=== PATIENT | male | born 1985 | race Caucasian/White ===

== ENCOUNTER 2017-10-01 17:41 | Inpatient (IN) | payer SELFPAY ==
[~2017-10-01 17:41] MED LIST: ERYT1O EACH EYE; OMNI1SUS EACH EYE; PERC5TAB12 PO
[2017-10-01 17:42] VITALS: BP 140/78; PULSE 86; RESP 12; TEMP 98.2; O2SAT 97
[2017-10-01] MEDS ORDERED: NEXI20CA PO (18:18)
[2017-10-01] MEDS ORDERED: METOCLOPRAMIDE HCL 10 MG/2 ML VIAL IV PUSH ONE (18:30)
[2017-10-01] MEDS ORDERED: diphenhydrAMINE HCL 50 MG/ML VIAL IV PUSH ONE (18:30)
[2017-10-01] MEDS ORDERED: KETOROLAC TROMETHAMINE 30 MG/ML (IVP) VIAL IV PUSH ONE (18:30)
--- NOTE | 2017-10-01 18:33 | PD ---
HPI Chief Complaint: GI Complaint Time Seen by Provider: 18:16 Travel History International Travel<30 days: No Contact w/Intl Traveler<30days: No Traveled to known affect area: No History of Present Illness HPI 31-year-old white male presents to emergency Department with complaints of lower abdominal discomfort since Tuesday. He states that he has had a mild intermittent crampy waxing and waning discomfort in his lower abdomen with some radiation into his rectum. He states that he noticed some increased urgency to urinate but no dysuria. Some mild frequency. He denies any discharge. No rashes or lesions. No fever chills. No nausea vomiting. No loss of appetite. He's been eating and drinking but states that he has to force himself. His bowel movements have been firmer but not constipated. Patient's family has a history of colitis. He has not had a colonoscopy. [facility] Past Medical History Medical History: Denies Significant Hx Diminished Hearing: No Immunizations Current: Yes Past Surgical History Surgical History: No Previous Surgery Social History Alcohol Use: No Tobacco Use: Yes Substance Use: No Allergies-Medications (Allergen,Severity, Reaction): Coded Allergies: No Known Allergies (Unverified Allergy, Unknown, 10/01/17) Reported Meds & Prescriptions Reported Meds & Active Scripts Active Reported Nexium (Esomeprazole DR) 20 Mg Capdr 20 Mg PO DAILY Review of Systems Except as stated in HPI: all other systems reviewed are Neg Physical Exam Narrative GENERAL: Well-developed, well-nourished in no apparent distress. Nontoxic appearing. HEAD: Normocephalic, atraumatic. EYES: Pupils equal round and reactive. Extraocular motions intact. No scleral icterus. No injection or drainage. ENT: Nose clear. Throat without erythema, tonsillar hypertrophy or exudate. Uvula midline. Airway patent. NECK: Trachea midline. Supple, nontender, moves head freely. No central bony tenderness or spasm. CARDIOVASCULAR: Regular rate and rhythm without murmurs, gallops, or rubs. RESPIRATORY: Clear to auscultation. Breath sounds equal bilaterally. No wheezes , rales, or rhonchi. GASTROINTESTINAL: Abdomen soft, non-tender, nondistended. No hepato-splenomegaly , or palpable masses. No guarding. Rectal: Patient has a small amount of soft brown stool in the rectum. He does have an enlarged prostate but the texture is normal. There is no rashes or lesions around the rectum. No palpable masses. EXTREMITIES: No clubbing, cyanosis, or edema. No joint tenderness. BACK: Nontender without deformity. No flank tenderness. NEUROLOGICAL: Awake, alert and oriented x 3 .Cranial nerves grossly intact. Motor and sensory grossly within normal limits. Normal speech. Data Data Last Documented VS Vital Signs Date Time Temp Pulse Resp B/P (MAP) Pulse Ox O2 Delivery O2 Flow Rate FiO2 10/01/17 19:21 12 10/01/17 19:20 80 129/61 (83) 97 10/01/17 17:42 98.2 Orders Orders Complete Blood Count With Diff (10/01/17 18:24) Comprehensive Metabolic Panel (10/01/17 18:24) C-Reactive Protein (Crp) (10/01/17 18:24) Ua Includes Microscopic (10/01/17 18:24) Iv Access Insert/Monitor (10/01/17 18:24) Ketorolac Inj (Toradol Inj) (10/01/17 18:30) Diphenhydramine Inj (Benadryl Inj) (10/01/17 18:30) Metoclopramide Inj (Reglan Inj) (10/01/17 18:30) Oral Rehydration (10/01/17 18:24) Ct Abd/Pel W Iv Contrast(Rout) (10/01/17 19:21) Iohexol 350 Inj (Omnipaque 350 Inj) (10/01/17 20:09) Admit Order (Ed Use Only) (10/01/17 ) Vital Signs (Adult) Q4H (10/01/17 20:43) Diet Npo (10/02/17 Breakfast) Activity Oob With Assistance (10/01/17 20:43) Notify Dr: Other (10/01/17 20:43) Labs Laboratory Tests Test 10/01/17 18:30 10/01/17 18:50 White Blood Count 12.6 TH/MM3 Red Blood Count 5.21 MIL/MM3 Hemoglobin 14.9 GM/DL Hematocrit 43.8 % Mean Corpuscular Volume 84.1 FL Mean Corpuscular Hemoglobin 28.6 PG Mean Corpuscular Hemoglobin Concent 34.0 % Red Cell Distribution Width 13.7 % Platelet Count 342 TH/MM3 Mean Platelet Volume 7.7 FL Neutrophils (%) (Auto) 73.5 % Lymphocytes (%) (Auto) 18.5 % Monocytes (%) (Auto) 6.2 % Eosinophils (%) (Auto) 1.2 % Basophils (%) (Auto) 0.6 % Neutrophils # (Auto) 9.2 TH/MM3 Lymphocytes # (Auto) 2.3 TH/MM3 Monocytes # (Auto) 0.8 TH/MM3 Eosinophils # (Auto) 0.2 TH/MM3 Basophils # (Auto) 0.1 TH/MM3 CBC Comment DIFF FINAL Differential Comment Blood Urea Nitrogen 18 MG/DL Creatinine 1.02 MG/DL Random Glucose 87 MG/DL Total Protein 7.4 GM/DL Albumin 3.6 GM/DL Calcium Level 8.9 MG/DL Alkaline Phosphatase 119 U/L Aspartate Amino Transf (AST/SGOT) 14 U/L Alanine Aminotransferase (ALT/SGPT) 38 U/L Total Bilirubin 0.3 MG/DL Sodium Level 138 MEQ/L Potassium Level 4.1 MEQ/L Chloride Level 103 MEQ/L Carbon Dioxide Level 28.7 MEQ/L Anion Gap 6 MEQ/L Estimat Glomerular Filtration Rate 85 ML/MIN C-Reactive Protein 2.50 MG/DL Urine Color YELLOW Urine Turbidity CLEAR Urine pH 6.5 Urine Specific [place] 1.014 Urine Protein NEG mg/dL Urine Glucose (UA) NEG mg/dL Urine Ketones TRACE mg/dL Urine Occult Blood NEG Urine Nitrite NEG Urine Bilirubin NEG Urine Urobilinogen LESS THAN 2.0 MG/DL Urine Leukocyte Esterase NEG Urine RBC 1 /hpf Urine Mucus FEW /lpf MDM Medical Decision Making Medical Screen Exam Complete: Yes Emergency Medical Condition: Yes Medical Record Reviewed: Yes Interpretation(s) Laboratory Tests Test 10/01/17 18:30 10/01/17 18:50 White Blood Count 12.6 TH/MM3 Red Blood Count 5.21 MIL/MM3 Hemoglobin 14.9 GM/DL Hematocrit 43.8 % Mean Corpuscular Volume 84.1 FL Mean Corpuscular Hemoglobin 28.6 PG Mean Corpuscular Hemoglobin Concent 34.0 % Red Cell Distribution Width 13.7 % Platelet Count 342 TH/MM3 Mean Platelet Volume 7.7 FL Neutrophils (%) (Auto) 73.5 % Lymphocytes (%) (Auto) 18.5 % Monocytes (%) (Auto) 6.2 % Eosinophils (%) (Auto) 1.2 % Basophils (%) (Auto) 0.6 % Neutrophils # (Auto) 9.2 TH/MM3 Lymphocytes # (Auto) 2.3 TH/MM3 Monocytes # (Auto) 0.8 TH/MM3 Eosinophils # (Auto) 0.2 TH/MM3 Basophils # (Auto) 0.1 TH/MM3 CBC Comment DIFF FINAL Differential Comment Blood Urea Nitrogen 18 MG/DL Creatinine 1.02 MG/DL Random Glucose 87 MG/DL Total Protein 7.4 GM/DL Albumin 3.6 GM/DL Calcium Level 8.9 MG/DL Alkaline Phosphatase 119 U/L Aspartate Amino Transf (AST/SGOT) 14 U/L Alanine Aminotransferase (ALT/SGPT) 38 U/L Total Bilirubin 0.3 MG/DL Sodium Level 138 MEQ/L Potassium Level 4.1 MEQ/L Chloride Level 103 MEQ/L Carbon Dioxide Level 28.7 MEQ/L Anion Gap 6 MEQ/L Estimat Glomerular Filtration Rate 85 ML/MIN C-Reactive Protein 2.50 MG/DL Urine Color YELLOW Urine Turbidity CLEAR Urine pH 6.5 Urine Specific [place] 1.014 Urine Protein NEG mg/dL Urine Glucose (UA) NEG mg/dL Urine Ketones TRACE mg/dL Urine Occult Blood NEG Urine Nitrite NEG Urine Bilirubin NEG Urine Urobilinogen LESS THAN 2.0 MG/DL Urine Leukocyte Esterase NEG Urine RBC 1 /hpf Urine Mucus FEW /lpf Last 24 hours Impressions Abdomen/Pelvis CT 10/01/171920 Signed Impressions: Service Date/Time: Sunday, October 01, 2017 20:03 - CONCLUSION: Abnormal thickening of the rectal wall with haziness of the perisigmoidal fat planes and there are diverticuli possibly acute diverticulitis with gas bubbles outside of the bowel loops suggestive of contained rupture without focal abscess. Possibility of underlying malignancy is not excluded and are lymph nodes within the pelvis as well subcentimeter in size indeterminate. Inocencia Bradshaw MD Differential Diagnosis MDM: High Differential diagnoses: Acute appendicitis, acute pancreatitis, diverticulitis, hepatitis, colitis, ischemic bowel, bowel instruction, nonspecific abdominal pain, gastroparesis, electrolyte abnormality, dehydration, drug-seeking, malingering Narrative Course IV access is obtained. Routine chemistries including CBC, chemistry, UA, CRP. Patient is given oral hydration. BenadryL 50mgIV, Reglan 10 mg IV, and Toradol [address] scan reveals acute sigmoid diverticulitis with microperforation. Patient will be started on Zosyn. I have spoken with Dr. Malcolm who is agreed to admit the patient. She states that she will follow up and start his antibiotics. We will consult Gen. surgery. I have answered all the patient's questions regarding his diagnosis and admission today. Diagnosis Primary Impression: acute sigmoid diverticulitis with microperforation Condition: Stable Reji Rocha Oct 01, 2017 18:33
[2017-10-01 19:05] LABS: AUTOMATED NEUTROPHIL # 9.2 TH/MM3 (1.8-7.7); BASOPHIL # 0.1 TH/MM3 (0-0.2); BASOPHIL % 0.6 % (0.0-2.0); EOSINOPHIL # 0.2 TH/MM3 (0-0.4); EOSINOPHIL % 1.2 % (0.0-4.0); HEMATOCRIT 43.8 % (39.0-51.0); HEMOGLOBIN 14.9 GM/DL (13.0-17.0); LYMPH % 18.5 % (9.0-44.0); LYMPHOCYTE # 2.3 TH/MM3 (1.0-4.8); MEAN CELL VOLUME 84.1 FL (80.0-100.0); MEAN CORPUSCULAR HEMOGLOBIN 28.6 PG (27.0-34.0); MEAN PLATELET VOLUME 7.7 FL (7.0-11.0); MONO % 6.2 % (0.0-8.0); MONOCYTE # 0.8 TH/MM3 (0-0.9); NEUT % 73.5 % (16.0-70.0); PLATELET COUNT 342 TH/MM3 (150-450); RED BLOOD COUNT 5.21 MIL/MM3 (4.50-5.90); RED CELL DISTRIBUTION WIDTH 13.7 % (11.6-17.2); WHITE BLOOD COUNT 12.6 TH/MM3 (4.0-11.0)
[2017-10-01 19:17] LABS: BILIRUBIN, URINE NEG (NEG); BLOOD, URINE NEG (NEG); GLUCOSE,URINE NEG (NEG); KETONE, URINE TRACE mg/dL (NEG); MUCUS URINE FEW /lpf (OCC); NITRITE,URINE NEG (NEG); PH, URINE 6.5 (5.0-8.5); URINE COLOR YELLOW (YELLW/STRAW); URINE LEUKOCYTE ESTERASE NEG (NEG)
[2017-10-01 19:20] VITALS: BP 129/61; PULSE 80; RESP 12; O2SAT 97
[2017-10-01 19:20] LABS: ALBUMIN 3.6 GM/DL (3.4-5.0); AST (GOT) 14 U/L (15-37); BICARBONATE 28.7 MEQ/L (21.0-32.0); BLOOD UREA NITROGEN 18 MG/DL (7-18); CALCIUM 8.9 MG/DL (8.5-10.1); CHLORIDE 103 MEQ/L (98-107); CREATININE 1.02 MG/DL (0.60-1.30); GLOMERULAR FILTRATION RATE 85 ML/MIN (>89); GLUCOSE,RANDOM 87 MG/DL (74-106); SODIUM (NA) 138 MEQ/L (136-145)
[2017-10-01 19:21] LABS: ALT (GPT) 38 U/L (12-78)
[2017-10-01 19:24] LABS: ALKALINE PHOSPHATASE 119 U/L (45-117); TOTAL BILIRUBIN ADULT 0.3 MG/DL (0.2-1.0); TOTAL PROTEIN 7.4 GM/DL (6.4-8.2)
[2017-10-01 20:00] VITALS: BP 126/70; PULSE 83; RESP 15; TEMP 96; O2SAT 94
[2017-10-01] MEDS ORDERED: IOHEXOL 350 MG/ML 10 ML VIAL (for RAD DIAG) IVCONTRAST ONE (20:09)
--- NOTE | 2017-10-01 20:29 | RADRPT ---
EXAM DATE/TIME: 10/01/2017 20:03 [facility] COMPARISON: No previous studies available for comparison. INDICATIONS : Rectal pain. IV CONTRAST: 80 cc Omnipaque 350 (iohexol) IV ORAL CONTRAST: No oral contrast ingested. RADIATION DOSE: 16.83 CTDIvol (mGy) MEDICAL HISTORY : None SURGICAL HISTORY : None. ENCOUNTER: Initial ACUITY: 1 day PAIN SCALE: 7/10 LOCATION: Bilateral rectum TECHNIQUE: Volumetric scanning of the abdomen and pelvis was performed. Using automated exposure control and ad justment of the mA and/or kV according to patient size, radiation dose was kept as low as reasonably achievable to obtain optimal diagnostic quality images. DICOM format image data is available electro nically for review and comparison. FINDINGS: CT Abdomen: The liver, spleen, pancreas, kidneys, adrenals are unremarkable. There is no evidence for any appreciable pathological adenopathy, free fluid, or bowel obstruction. CT pelvis: There is no evidence for mass, abscess formation, or any significant adenopathy within the pelvis. There are diverticuli in the sigmoid colon and there is thickening of the rectal wall which measures 1.5 cm. Findings may present inflammatory changes possibly mild case of diverticulitis or in flammation involving the right stem, however underlying malignancy is not excluded. There are a few t iny subcentimeter lymph nodes adjacent to the sigmoid colon as well possibly reactive, however metast atic disease is difficult to exclude. There are a few gas bubbles that appear to be outside of the joya wel loops fat planes of the mesentery possibly contained rupture. CONCLUSION: Abnormal thickening of the rectal wall with haziness of the perisigmoidal fat planes and there are diverticuli possibly acute diverticulitis with gas bubbles outside of the bowel loops s uggestive of contained rupture without focal abscess. Possibility of underlying malignancy is not exc luded and are lymph nodes within the pelvis as well subcentimeter in size indeterminate. Inocencia Bradshaw MD on October 01, 2017 at 20:21 Board Certified Radiologist. This report was verified electronically.
[2017-10-01] MEDS ORDERED: ONDANSETRON HCL 4 MG/2 ML VIAL IVP PRN (21:00)
[2017-10-01] MEDS ORDERED: MORPHINE SULFATE 4 MG/ML INJ IV PUSH PRN (21:00)
[2017-10-01] MEDS ORDERED: SODIUM CHLORIDE 0.9% FLUSH 10 ML FLUSH IV FLUSH PRN (21:00)
[2017-10-01] MEDS ORDERED: NALOXONE HCL 0.4 MG/ML AMP IV PUSH PRN (21:00)
[2017-10-01] MEDS: SODIUM CHLORIDE 0.9% FLUSH 10 ML FLUSH IV FLUSH SCH (21:00)
[2017-10-01] MEDS: PIPERACIL-TAZO 3.375 GM PREMIX 50 ML IV SCH (21:20)
[2017-10-01] MEDS: SODIUM CHLOR 0.9% 1000 ML INJ 1,000 ML IV SCH (21:20)
--- NOTE | 2017-10-01 21:28 | HHI.HP ---
[facility]ician No Primary Care Physician Admission Diagnosis acute sigmoid diverticulitis with microperforation Diagnoses: Travel History International Travel<30 Days: No Contact w/Intl Traveler <30 Da: No Traveled to Known Affected Are: No History of Present Illness 31-year-old male with no significant past medical history presents for the evaluation of abdominal pain. The patient reports his abdominal pain began on Tuesday. He states that it is intermittent and cramping pain in his bilateral lower quadrants. He endorses nonbloody diarrhea. Denies nausea vomiting. Denies any other systemic symptoms such as fever/chills, shortness of breath/ chest pain, lower extremity swelling. Review of Systems Except as stated in HPI: all other systems reviewed are Neg Past Family Social History Past Medical History None Past Surgical History None Reported Medications Reported Meds & Active Scripts Active Reported Nexium (Esomeprazole DR) 20 Mg Capdr 20 Mg PO DAILY Allergies: Coded Allergies: No Known Allergies (Unverified Allergy, Unknown, 10/01/17) Family History Dad with CAD Social History Rare alcohol. No tobacco. No illicit drugs. Physical Exam Vital Signs Vital Signs Date Time Temp Pulse Resp B/P (MAP) Pulse Ox O2 Delivery O2 Flow Rate FiO2 10/01/17 19:21 12 10/01/17 19:20 80 12 129/61 (83) 97 10/01/17 18:19 16 10/01/17 17:42 98.2 86 12 140/78 (98) 97 Physical Exam GENERAL: Male lying in bed SKIN: No rashes, ecchymoses or lesions. Cool and dry. HEAD: Atraumatic. Normocephalic. No temporal or scalp tenderness. EYES: Pupils equal round and reactive. Extraocular motions intact. No scleral icterus. No injection or drainage. ENT: Nose without bleeding, purulent drainage or septal hematoma. Throat without erythema, tonsillar hypertrophy or exudate. Uvula midline. Airway patent. NECK: Trachea midline. No JVD or lymphadenopathy. Supple, nontender, no meningeal signs. CARDIOVASCULAR: Regular rate and rhythm without murmurs, gallops, or rubs. RESPIRATORY: Clear to auscultation. Breath sounds equal bilaterally. No wheezes , rales, or rhonchi. GASTROINTESTINAL: Abdomen soft, non-tender to deep palpation however patient is status post pain medication, nondistended. No hepato-splenomegaly, or palpable masses. No guarding. MUSCULOSKELETAL: Extremities without clubbing, cyanosis, or edema. No joint tenderness, effusion, or edema noted. No calf tenderness. NEUROLOGICAL: Awake and alert. Cranial nerves II through XII intact. Motor and sensory grossly within normal limits. Normal speech. Laboratory Laboratory Tests Test 10/01/17 18:30 10/01/17 18:50 White Blood Count 12.6 Red Blood Count 5.21 Hemoglobin 14.9 Hematocrit 43.8 Mean Corpuscular Volume 84.1 Mean Corpuscular Hemoglobin 28.6 Mean Corpuscular Hemoglobin Concent 34.0 Red Cell Distribution Width 13.7 Platelet Count 342 Mean Platelet Volume 7.7 Neutrophils (%) (Auto) 73.5 Lymphocytes (%) (Auto) 18.5 Monocytes (%) (Auto) 6.2 Eosinophils (%) (Auto) 1.2 Basophils (%) (Auto) 0.6 Neutrophils # (Auto) 9.2 Lymphocytes # (Auto) 2.3 Monocytes # (Auto) 0.8 Eosinophils # (Auto) 0.2 Basophils # (Auto) 0.1 CBC Comment DIFF FINAL Differential Comment Blood Urea Nitrogen 18 Creatinine 1.02 Random Glucose 87 Total Protein 7.4 Albumin 3.6 Calcium Level 8.9 Alkaline Phosphatase 119 Aspartate Amino Transf (AST/SGOT) 14 Alanine Aminotransferase (ALT/SGPT) 38 Total Bilirubin 0.3 Sodium Level 138 Potassium Level 4.1 Chloride Level 103 Carbon Dioxide Level 28.7 Anion Gap 6 Estimat Glomerular Filtration Rate 85 C-Reactive Protein 2.50 Urine Color YELLOW Urine Turbidity CLEAR Urine pH 6.5 Urine Specific [place] 1.014 Urine Protein NEG Urine Glucose (UA) NEG Urine Ketones TRACE Urine Occult Blood NEG Urine Nitrite NEG Urine Bilirubin NEG Urine Urobilinogen LESS THAN 2.0 Urine Leukocyte Esterase NEG Urine RBC 1 Urine Mucus FEW Result Diagram: 10/01/17182910/01/171829 Caprini VTE Risk Assessment Caprini VTE Risk Assessment: No/Low Risk (score <= 1) Caprini Risk Assessment Model Point Value = 1 Point Value = 2 Point Value = 3 Point Value = 5 Age 41-60 Minor surgery BMI > 25 kg/m2 Swollen legs Varicose veins or History of unexplained or recurrent spontaneous Oral contraceptives or hormone replacement Sepsis (< 1 month) Serious lung disease, including pneumonia (< 1 month) Abnormal pulmonary function Acute myocardial infarction Congestive heart failure (< 1 month) History of inflammatory bowel disease Medical patient at bed rest Age 61-74 Arthroscopic surgery Major open surgery (> 45 min) Laparoscopic surgery (> 45 min) Malignancy Confined to bed (> 72 hours) Immobilizing plaster cast Central venous access Age >= 75 History of VTE Family history of VTE Factor V Leiden Prothrombin [id number] Lupus anticoagulant Anticardiolipin antibodies Elevated serum homocysteine Heparin-induced thrombocytopenia Other congenital or acquired thrombophilia Stroke (< 1 month) Elective arthroplasty Hip, pelvis, or leg fracture Acute spinal cord injury (< 1 month) Prophylaxis Regimen Total Risk Factor Score Risk Level Prophylaxis Regimen 0-1 Low Early ambulation 2 Moderate Order ONE of the following: *Sequential Compression Device (SCD) *Heparin 5000 units SQ BID 3-4 Higher Order ONE of the following medications: *Heparin 5000 units SQ TID *Enoxaparin/Lovenox 40 mg SQ daily (WT < 150 kg, CrCl > 30 mL/min) *Enoxaparin/Lovenox 30 mg SQ daily (WT < 150 kg, CrCl > 10-29 mL/min) *Enoxaparin/Lovenox 30 mg SQ BID (WT < 150 kg, CrCl > 30 mL/min) AND/OR *Sequential Compression Device (SCD) 5 or more Highest Order ONE of the following medications: *Heparin 5000 units SQ TID (Preferred with Epidurals) *Enoxaparin/Lovenox 40 mg SQ daily (WT < 150 kg, CrCl > 30 mL/min) *Enoxaparin/Lovenox 30 mg SQ daily (WT < 150 kg, CrCl > 10-29 mL/min) *Enoxaparin/Lovenox 30 mg SQ BID (WT < 150 kg, CrCl > 30 mL/min) AND *Sequential Compression Device (SCD) Assessment and Plan Assessment and Plan Assessment/plan: 1. Acute diverticulitis/possible rupture CT of the abdomen/pelvis shows abnormal thickening of the rectal wall with possible acute diverticulitis. There are gas bubbles present outside of the bowel loops suggestive of a contained rupture without focal abscess. General surgery consulted, appreciate recommendations Zosyn Nothing by mouth Morphine for pain FEN NPO Electrolytes: monitor and replete prn NS at 100 cc/hr Physician Certification 2 Midnight Certification Type: Admission for Inpatient Services Order for Inpatient Services The services are ordered in accordance with Medicare regulations or non- Medicare payer requirements, as applicable. In the case of services not specified as inpatient-only, they are appropriately provided as inpatient services in accordance with the 2-midnight benchmark. Estimated LOS (days): 2 2 days is the estimated time the patient will need to remain in the hospital, assuming treatment plan goals are met and no additional complications. Post-Hospital Plan: Not yet determined Rin Malcolm MD Oct 01, 2017 21:28
[2017-10-02] VITALS: BP 129/70; PULSE 89; RESP 15; TEMP 97.1; O2SAT 96
[2017-10-02] MEDS: PIPERACIL-TAZO 3.375 GM PREMIX 50 ML IV SCH ×4 (02:08→20:25)
[2017-10-02] MEDS: SODIUM CHLOR 0.9% 1000 ML INJ 1,000 ML IV SCH (06:25)
[2017-10-02 06:38] LABS: AUTOMATED NEUTROPHIL # 4.6 TH/MM3 (1.8-7.7); BASOPHIL % 0.5 % (0.0-2.0); EOSINOPHIL # 0.2 TH/MM3 (0-0.4); HEMATOCRIT 43.4 % (39.0-51.0); HEMOGLOBIN 14.8 GM/DL (13.0-17.0); LYMPH % 32.6 % (9.0-44.0); LYMPHOCYTE # 2.6 TH/MM3 (1.0-4.8); MEAN CELL VOLUME 83.8 FL (80.0-100.0); MEAN CORPUSCULAR HEMOGLOBIN 28.6 PG (27.0-34.0); MEAN CORPUSCULAR HGB CONC 34.2 % (32.0-36.0); MEAN PLATELET VOLUME 7.8 FL (7.0-11.0); MONO % 7.3 % (0.0-8.0); MONOCYTE # 0.6 TH/MM3 (0-0.9); NEUT % 57.6 % (16.0-70.0); PLATELET COUNT 309 TH/MM3 (150-450); RED BLOOD COUNT 5.18 MIL/MM3 (4.50-5.90); RED CELL DISTRIBUTION WIDTH 13.5 % (11.6-17.2); WHITE BLOOD COUNT 8.1 TH/MM3 (4.0-11.0)
[2017-10-02 07:04] LABS: ALBUMIN 3.4 GM/DL (3.4-5.0); ALT (GPT) 36 U/L (12-78); AST (GOT) 12 U/L (15-37); BICARBONATE 27.3 MEQ/L (21.0-32.0); BLOOD UREA NITROGEN 18 MG/DL (7-18); CALCIUM 8.5 MG/DL (8.5-10.1); CHLORIDE 105 MEQ/L (98-107); CREATININE 0.98 MG/DL (0.60-1.30); GLOMERULAR FILTRATION RATE 89 ML/MIN (>89); GLUCOSE,RANDOM 82 MG/DL (74-106); SODIUM (NA) 140 MEQ/L (136-145)
[2017-10-02 07:07] LABS: ALKALINE PHOSPHATASE 110 U/L (45-117); TOTAL BILIRUBIN ADULT 0.6 MG/DL (0.2-1.0); TOTAL PROTEIN 7.1 GM/DL (6.4-8.2)
[2017-10-02 08:00] VITALS: BP 104/58; PULSE 63; RESP 16; TEMP 96; O2SAT 96
[2017-10-02] MEDS: SODIUM CHLORIDE 0.9% FLUSH 10 ML FLUSH IV FLUSH SCH ×2 (08:50→20:27)
--- NOTE | 2017-10-02 10:13 | HHI.PR ---
Subjective Remarks Patient reports abdominal pain have significantly improved. Pain level maybe 1. Objective Vitals Vital Signs Date Time Temp Pulse Resp B/P (MAP) Pulse Ox O2 Delivery O2 Flow Rate FiO2 10/02/17 08:00 96.0 63 16 104/58 (73) 96 10/02/17 00:00 97.1 89 15 129/70 (89) 96 10/01/17 21:31 10/01/17 20:00 96.0 83 15 126/70 (88) 94 10/01/17 19:21 12 10/01/17 19:20 80 12 129/61 (83) 97 10/01/17 18:19 16 10/01/17 17:42 98.2 86 12 140/78 (98) 97 I/O 10/01/17 10/01/17 10/01/17 10/02/17 10/02/17 10/02/17 07:00 15:00 23:00 07:00 15:00 23:00 Intake Total 50 ml 50 ml Balance 50 ml 50 ml Intake Oral 0 ml IV Total 50 ml 50 ml # Voids 1 2 # Bowel Movements 1 Result Diagram: 10/02/17 0530 10/02/17 0530 Objective Remarks GENERAL: This is a well-nourished, well-developed patient, in no apparent distress. CARDIOVASCULAR: Normal rate and regular rhythm without murmurs, gallops, or rubs. RESPIRATORY: Good respiratory efforts. Breath sounds equal and clear to auscultation bilaterally. GASTROINTESTINAL: Abdomen soft, minimal tenderness to palpation, mostly on the left lower quadrant. Normal active bowel sounds. MUSCULOSKELETAL: Extremities without cyanosis, or edema. NEURO: Alert & Oriented x4 to person, place, time, situation. Moves all ext x4 PSYCH: Appropriate mood and affect. A/P Assessment and Plan 31 Y/O male admitted with: Acute diverticulitis/possible rupture: Symptoms significantly improved. CT of the abdomen/pelvis shows abnormal thickening of the rectal wall with possible acute diverticulitis. There are gas bubbles present outside of the bowel loops suggestive of a contained rupture without focal abscess. General surgery consulted, appreciate recommendations Continue Zosyn Nothing by mouth Morphine for pain Leukocytosis: Secondary to above. Resolved. DVT PPx: SCDs. Patient is ambulatory Discharge Planning Continue IV antibiotics. Awaiting input from surgery. Evelyn Webster MD Oct 02, 2017 10:13
[2017-10-02 12:00] VITALS: BP 126/75; PULSE 60; RESP 18; TEMP 95.7; O2SAT 97
[2017-10-02] MEDS: D5-1/2 NS + KCL 10 MEQ INJ 1,000 ML IV SCH (14:50)
--- NOTE | 2017-10-02 15:27 | MB ---
cc: [facility] DATE OF CONSULTATION: 10/02/2017. REASON FOR CONSULTATION: Acute diverticulitis. HISTORY OF PRESENT ILLNESS: This is a 31-year-old male with no significant medical history who presented to the emergency room with severe lower abdominal pain which started at the beginning of the week. The patient states it was intermittently cramping and no diarrhea associated with it. The patient states that he has had several episodes of this type of pain in the past and I got that on carefully obtaining of H&P. Apparently the patient did not think it was much so now he presents to emergency room with the same. I am consulted for possible surgical implications. PAST MEDICAL HISTORY: None. PAST SURGICAL HISTORY: None. ALLERGIES: NONE. MEDICATIONS: None. SOCIAL HISTORY: The patient is gainfully employed. FAMILY HISTORY: The family history is somewhat important. The patient's daughter has been diagnosed with Crohn's disease at the age of 9 and at the age of 10, and this was followed by a stroke. The patient's daughter has now recovered completely but this gentleman has not been worked up for any of this, either genetically or by colonoscopy. PHYSICAL EXAMINATION: GENERAL: The physical exam reveals a 31-year-old gentleman in no acute distress. HEAD, EYES, EARS, NOSE, THROAT: Normocephalic. No trauma to the head. Pupils equal and reactive. Extraocular muscles intact. NECK: The neck is supple. Bilateral carotid pulses. No bruits. CHEST: Clear. Bilateral breath sounds. HEART: Regular rhythm. ABDOMEN: Slightly overweight but active bowel sounds. No rebound, no guarding, no masses in the upper abdomen. In the lower abdomen, there is definitely mass effect in the midline just suprapubic. This is consistent with acute diverticulitis and surrounding edema to the bowel and abdominal wall. EXTREMITIES: Grossly within normal limits. BACK: Normal. IMPRESSION AND RECOMMENDATIONS: I reviewed diagnostic and laboratory procedures. This gentleman clearly has acute diverticulitis with perirectal swelling. There is of course a small chance that this might be a malignancy and therefore the patient at this point should not have surgery if it can be helped. In the best case scenario, the gentleman should have antibiotics allowing this to calm down. This should be followed by elective colonoscopy in a few weeks and biopsies. Based on the findings, will tailor a clinical program. In a little worst case scenario, if the patient does not improve or deteriorates, then he may need a Zachary resection, but this should be avoided at this time. A small contained perforation is no indication for surgery unless it worsens, and the majority of these will improve and get alleviated with antibiotics. In the bigger picture scheme, the patient is [employer] and his daughter has Crohn's disease at an early age. The stroke related to it may or may not be part of the same picture; however, collagen vascular immunosuppressive reactive reticuloendothelial disorders do fall in the category of granulomatous diseases ranging from Crohn's to ulcerative colitis and therefore these patients do tend to develop immune reactions, release of tissue factors and hypercoagulable states, which can lead to stroke. While I have never seen his daughter, I am looking at the bigger picture here. I have explained this to the patient and will go from there. He will follow up in my office as well as with gastroenterology and probably immunology in the future and then we will tailor his therapy as necessary. Thank you very much for the referral. CRITICAL CARE TIME: Critical care was forty (40) minutes. Samantha MASCORRO/ELIZABETH /3:04 PM /3:13 PM
[2017-10-02 16:00] VITALS: BP 114/61; PULSE 54; RESP 18; TEMP 97.8; O2SAT 97
[2017-10-02 20:00] VITALS: BP 118/61; PULSE 63; RESP 16; TEMP 98.7; O2SAT 97
[2017-10-03] VITALS: BP 120/67; PULSE 62; RESP 16; TEMP 98.6; O2SAT 98
[2017-10-03] MEDS: D5-1/2 NS + KCL 10 MEQ INJ 1,000 ML IV SCH ×4 (02:24→19:15)
[2017-10-03] MEDS: PIPERACIL-TAZO 3.375 GM PREMIX 50 ML IV SCH ×4 (02:24→21:11)
[2017-10-03 08:00] VITALS: BP 115/69; PULSE 62; RESP 18; TEMP 96.2; O2SAT 97
[2017-10-03] MEDS: SODIUM CHLORIDE 0.9% FLUSH 10 ML FLUSH IV FLUSH SCH ×2 (08:04→21:00)
[2017-10-03 09:25] VITALS: BP 157/86
--- NOTE | 2017-10-03 10:23 | PD.CAR.PN ---
CVT Progress Note Subjective/Hospital Course: 10/03/17 Patient doing very well at this time abdomen is soft active bowel sounds Mass effect is less prominent in suprapubic area Repeat CT scan tomorrow and depending on the findings patient may or may not go home on antibiotics As noted will need a colonoscopy next few weeks to evaluate this area as well as the rest of his colon especially in the face of positive family history for ulcerative colitis. Depending on all these studies will have to decide whether patient will need elective sigmoid colon resection or not this is all different than just regular diverticulitis wouldn't obviously hold off and change the diet as a preferred treatment Objective: Vital Signs Date Time Temp Pulse Resp B/P (MAP) Pulse Ox O2 Delivery O2 Flow Rate FiO2 10/03/17 08:00 96.2 62 18 115/69 (84) 97 10/03/17 00:00 98.6 62 16 120/67 (84) 98 10/02/17 20:00 98.7 63 16 118/61 (80) 97 10/02/17 16:00 97.8 54 18 114/61 (78) 97 10/02/17 12:00 95.7 60 18 126/75 (92) 97 Result Diagram: 10/02/17 0530 10/02/17 0530 Samantha Lin MD Oct 03, 2017 10:23
[2017-10-03 11:24] LABS: AUTOMATED NEUTROPHIL # 3.9 TH/MM3 (1.8-7.7); BASOPHIL % 0.8 % (0.0-2.0); EOSINOPHIL # 0.1 TH/MM3 (0-0.4); HEMOGLOBIN 14.9 GM/DL (13.0-17.0); LYMPH % 25.5 % (9.0-44.0); LYMPHOCYTE # 1.5 TH/MM3 (1.0-4.8); MEAN CELL VOLUME 83.3 FL (80.0-100.0); MEAN CORPUSCULAR HEMOGLOBIN 28.3 PG (27.0-34.0); MEAN CORPUSCULAR HGB CONC 33.9 % (32.0-36.0); MEAN PLATELET VOLUME 7.2 FL (7.0-11.0); MONO % 6.7 % (0.0-8.0); MONOCYTE # 0.4 TH/MM3 (0-0.9); PLATELET COUNT 341 TH/MM3 (150-450); RED BLOOD COUNT 5.28 MIL/MM3 (4.50-5.90); RED CELL DISTRIBUTION WIDTH 13.8 % (11.6-17.2); WHITE BLOOD COUNT 5.9 TH/MM3 (4.0-11.0)
[2017-10-03 11:56] LABS: BICARBONATE 31.1 MEQ/L (21.0-32.0); CALCIUM 9.1 MG/DL (8.5-10.1); CREATININE 0.99 MG/DL (0.60-1.30)
[2017-10-03 12:00] VITALS: BP 115/59; PULSE 52; RESP 16; TEMP 97.1; O2SAT 93
--- NOTE | 2017-10-03 12:14 | HHI.PR ---
Subjective Remarks Patient reports he is feeling better. He tolerated liquid diet. Minimal abdominal discomfort. No nausea or vomiting. Afebrile. Objective Vitals Vital Signs Date Time Temp Pulse Resp B/P (MAP) Pulse Ox O2 Delivery O2 Flow Rate FiO2 10/03/17 08:00 96.2 62 18 115/69 (84) 97 10/03/17 00:00 98.6 62 16 120/67 (84) 98 10/02/17 20:00 98.7 63 16 118/61 (80) 97 10/02/17 16:00 97.8 54 18 114/61 (78) 97 I/O 10/02/17 10/02/17 10/02/17 10/03/17 10/03/17 10/03/17 07:00 15:00 23:00 07:00 15:00 23:00 Intake Total 50 ml 1750 ml 700 ml 1570 ml Balance 50 ml 1750 ml 700 ml 1570 ml Intake Oral 0 ml 600 ml 520 ml IV Total 50 ml 1750 ml 100 ml 1050 ml # Voids 2 4 3 # Bowel Movements 1 0 0 1 Result Diagram: 10/03/17 1110 10/03/17 1110 Objective Remarks GENERAL: This is a well-nourished, well-developed patient, in no apparent distress. CARDIOVASCULAR: Normal rate and regular rhythm without murmurs, gallops, or rubs. RESPIRATORY: Good respiratory efforts. Breath sounds equal and clear to auscultation bilaterally. GASTROINTESTINAL: Abdomen soft, minimal tenderness to palpation, mostly on the left lower quadrant. Normal active bowel sounds. MUSCULOSKELETAL: Extremities without cyanosis, or edema. NEURO: Alert & Oriented x4 to person, place, time, situation. Moves all ext x4 PSYCH: Appropriate mood and affect. A/P Assessment and Plan 31 Y/O male admitted with: Acute diverticulitis/possible rupture: Symptoms significantly improved. CT of the abdomen/pelvis shows abnormal thickening of the rectal wall with possible acute diverticulitis. There are gas bubbles present outside of the bowel loops suggestive of a contained rupture without focal abscess. General surgery Dr. Teixeira following. Advise conservative management with antibiotics. Patient have improved significantly but other conditions such as ulcerative colitis or Crohn's disease are not excluded especially the patient's daughter has a history of ulcerative colitis. Agree with Dr. Teixeira recommendation. He needs follow-up outpatient with GI for endoscopy and biopsy. Continue Zosyn Advanced diet Repeat abdominal/pelvis CT tomorrow. Leukocytosis: Secondary to above. Resolved. DVT PPx: SCDs. Patient is ambulatory Discharge Planning Continue IV antibiotics today. Repeat abdominal/pelvis CT tomorrow. If the patient continues to improve and his imaging is favorable, can probably be discharged home on oral antibiotics to follow-up outpatient with GI and surgery. He is eager to be discharged and has to go back to work soon. Evelyn Webster MD Oct 03, 2017 12:14
[2017-10-03] MEDS: MORPHINE SULFATE 2 MG/ML INJ IV PUSH PRN (15:39)
[2017-10-03 16:00] VITALS: BP 129/59; PULSE 70; RESP 16; TEMP 98.7; O2SAT 97
[2017-10-03 20:00] VITALS: BP 117/60; PULSE 77; RESP 20; TEMP 96.5; O2SAT 94
[2017-10-04] MEDS: D5-1/2 NS + KCL 10 MEQ INJ 1,000 ML IV SCH ×3 (00:53→21:37)
[2017-10-04] MEDS: PIPERACIL-TAZO 3.375 GM PREMIX 50 ML IV SCH ×4 (03:14→21:37)
[2017-10-04] MEDS ORDERED: DIATRIZOATE MEGLUM/DIATRIZOATE SOD 9 ML CUP PO SCH (06:00)
[2017-10-04 08:00] VITALS: BP 110/57; PULSE 66; RESP 17; TEMP 98.1; O2SAT 96
[2017-10-04] MEDS ORDERED: IOHEXOL 350 MG/ML 10 ML VIAL (for RAD DIAG) IVCONTRAST ONE (08:55)
[2017-10-04] MEDS: SODIUM CHLORIDE 0.9% FLUSH 10 ML FLUSH IV FLUSH SCH ×2 (09:14→21:00)
--- NOTE | 2017-10-04 09:20 | RADRPT ---
EXAM DATE/TIME: 10/04/2017 08:50 [facility] COMPARISON: CT ABDOMEN & PELVIS W CONTRAST, October 01, 2017, 20:03. INDICATIONS : Abdominal pain. IV CONTRAST: 95 cc Omnipaque 350 (iohexol) IV ORAL CONTRAST: Prescribed oral contrast ingested. RADIATION DOSE: 16.50 CTDIvol (mGy) MEDICAL HISTORY : None SURGICAL HISTORY : None. ENCOUNTER: Initial ACUITY: 1 day PAIN SCALE: 4/10 LOCATION: Bilateral lower quadrant TECHNIQUE: Volumetric scanning of the abdomen and pelvis was performed. Using automated exposure control and ad justment of the mA and/or kV according to patient size, radiation dose was kept as low as reasonably achievable to obtain optimal diagnostic quality images. DICOM format image data is available electro nically for review and comparison. FINDINGS: LOWER LUNGS: The visualized lower lungs are clear. LIVER: Homogeneous density without lesion. There is no dilation of the biliary tree. No calcified gallston es. SPLEEN: Normal size without lesion. PANCREAS: Within normal limits. KIDNEYS: Normal in size and shape. There is no mass, stone or hydronephrosis. ADRENAL GLANDS: Within normal limits. VASCULAR: There is no aortic aneurysm. BOWEL/MESENTERY: There is diffuse wall thickening involving the rectosigmoid colon as well as pericolic inflammatory c hanges. There is a tiny extraluminal collection of air and fluid adjacent to the rectosigmoid colon m easuring 17 mm in greatest dimension consistent with probable tiny pericolic abscess. This is too sma ll for percutaneous drainage. The appendix is normal. ABDOMINAL WALL: Within normal limits. RETROPERITONEUM: There is no lymphadenopathy. BLADDER: No wall thickening or mass. REPRODUCTIVE: Within normal limits. INGUINAL: There is no lymphadenopathy or hernia. MUSCULOSKELETAL: Within normal limits for patient age. CONCLUSION: Diffuse wall thickening involving the rectosigmoid colon as well as pericolic inflamm atory changes. There is a tiny extraluminal collection of air and fluid adjacent to the rectosigmoid colon measuring 17 mm in greatest dimension consistent with probable tiny pericolic abscess. This is too small for percutaneous drainage. Differential diagnosis remains the same as was described on the previous examination dated 10/01/17. Dino Baker MD on October 04, 2017 at 9:12 Board Certified Radiologist. This report was verified electronically.
--- NOTE | 2017-10-04 09:27 | HHI.PR ---
Subjective Remarks Follow up diverticulitis. Patient reports some abdominal discomfort and nausea. Had a bowel movement with a small amount of red blood. Also had a normal bowel movement after the bloody stool. Objective Vitals Vital Signs Date Time Temp Pulse Resp B/P (MAP) Pulse Ox O2 Delivery O2 Flow Rate FiO2 10/04/17 08:00 98.1 66 17 110/57 (74) 96 10/03/17 20:00 96.5 77 20 117/60 (79) 94 10/03/17 16:00 98.7 70 16 129/59 (82) 97 10/03/17 12:00 97.1 52 16 115/59 (77) 93 I/O 10/03/17 10/03/17 10/03/17 10/04/17 10/04/17 10/04/17 07:00 15:00 23:00 07:00 15:00 23:00 Intake Total 1570 ml 720 ml 1050 ml Balance 1570 ml 720 ml 1050 ml Intake Oral 520 ml 620 ml IV Total 1050 ml 100 ml 1050 ml # Voids 3 3 # Bowel Movements 0 1 1 Result Diagram: 10/03/17 1110 10/03/17 1110 Imaging Last Impressions Abdomen/Pelvis CT 10/01/171920 Signed Impressions: Service Date/Time: Sunday, October 01, 2017 20:03 - CONCLUSION: Abnormal thickening of the rectal wall with haziness of the perisigmoidal fat planes and there are diverticuli possibly acute diverticulitis with gas bubbles outside of the bowel loops suggestive of contained rupture without focal abscess. Possibility of underlying malignancy is not excluded and are lymph nodes within the pelvis as well subcentimeter in size indeterminate. Inocencia Bradshaw MD Objective Remarks General: No acute distress. Heart: Regular rate and rhythm. No murmur. Lungs: Clear to auscultation bilaterally. No wheezes, rales, or rhonchi. Breathing is nonlabored. Abdomen: Soft, nontender, nondistended. Extremities: No lower extremity edema. Psych: Alert and oriented. Procedures None Urinary Catheter: No Vascular Central Line Catheter: No A/P Assessment and Plan 1. Acute diverticulitis, possible: Rupture: Symptoms improved. CT of the abdomen and pelvis shows rectal wall thickening and knees consistent with contained rupture without focal abscess. Repeat CT scan today shows 17 mm abscess. Appreciate general surgery recommendations. Continue conservative management with antibiotics at this time. Patient will need follow-up with gastroenterology for colonoscopy. We'll consult GI for further recommendations regarding follow-up and also bloody stool. 2. Leukocytosis: Resolved. Secondary to diverticulitis. 3. DVT prophylaxis: SCDs, ambulation. Discharge Planning Plan for discharge home when cleared by general surgery, pending GI evaluation. Delfino Flores MD Oct 04, 2017 09:27
[2017-10-04 12:00] VITALS: BP 113/66; PULSE 69; RESP 17; TEMP 98.6; O2SAT 97
--- NOTE | 2017-10-04 12:08 | PD.CONS ---
HPI History of Present Illness This is a 31 year old male who presented with lower abd pain extending to rectum , pressure like sensation worse with BM. Onset 3 d ago. he tried aloe vera and nexium but no releif. He had been constipated and then started having loose stool. He has had this pain before but milder and did resolve. Just this morning he had scant red blood on his stool and on wipe. He has been eating regular diet until today and experienced worse pain after eating carrots at lunch but did ok with dinner. Denies n/v, fevers. NEVER had EGD or colonsocopy. CT 10/01 showed poss acute diverticulitis, suggestive of contained rupture w/o abscess, CT 10/04 suggestive of pericolic abscess too small to drain. Over all he feels he is improved since onset of pain. (Gwendolyn Belcher) PFSH Past Medical History None Past Surgical History None (Gwendolyn Belcher) Coded Allergies: No Known Allergies (Unverified Allergy, Unknown, 10/01/17) Family History Dad with CAD Social History Rare alcohol. No tobacco. No illicit drugs. (Gwendolyn Belcher) Review of Systems Constitutional: DENIES: Fever Endocrine: DENIES: Polydipsia Eyes: DENIES: Blurred vision Ears, nose, mouth, throat: DENIES: Hearing loss Respiratory: DENIES: Cough Cardiovascular: DENIES: Chest pain Gastrointestinal: COMPLAINS OF: Abdominal pain, Bloody stools, DENIES: Nausea, Vomiting Genitourinary: DENIES: Hematuria Musculoskeletal: DENIES: Joint Swelling Integumentary: DENIES: Pruritus Hematologic/lymphatic: DENIES: Bruising Neurologic: DENIES: Abnormal gait Psychiatric: DENIES: Confusion (Gwendolyn Belcher) GI Exam Vitals I&O Vital Signs Date Time Temp Pulse Resp B/P (MAP) Pulse Ox O2 Delivery O2 Flow Rate FiO2 10/04/17 08:00 98.1 66 17 110/57 (74) 96 10/03/17 20:00 96.5 77 20 117/60 (79) 94 10/03/17 16:00 98.7 70 16 129/59 (82) 97 I/O 10/03/17 10/03/17 10/03/17 10/04/17 10/04/1718 07:00 15:00 23:00 07:00 15:00 23:00 Intake Total 1570 ml 720 ml 1050 ml Balance 1570 ml 720 ml 1050 ml Intake Oral 520 ml 620 ml IV Total 1050 ml 100 ml 1050 ml # Voids 3 3 # Bowel Movements 0 1 1 Imaging Last Impressions Abdomen/Pelvis CT 10/04/17 0000 Signed Impressions: Service Date/Time: Wednesday, October 04, 2017 08:50 - CONCLUSION: Diffuse wall thickening involving the rectosigmoid colon as well as pericolic inflammatory changes. There is a tiny extraluminal collection of air and fluid adjacent to the rectosigmoid colon measuring 17 mm in greatest dimension consistent with probable tiny pericolic abscess. This is too small for percutaneous drainage. Differential diagnosis remains the same as was described on the previous examination dated 10/01/17. Dino Baker MD Laboratory Laboratory Tests Test 10/01/17 18:30 10/01/17 18:50 10/02/17 05:30 10/03/17 11:10 C-Reactive Protein 2.50 MG/DL Urine Color YELLOW Urine Turbidity CLEAR Urine pH 6.5 Urine Specific [place] 1.014 Urine Protein NEG mg/dL Urine Glucose (UA) NEG mg/dL Urine Ketones TRACE mg/dL Urine Occult Blood NEG Urine Nitrite NEG Urine Bilirubin NEG Urine Urobilinogen LESS THAN 2.0 MG/DL Urine Leukocyte Esterase NEG Urine RBC 1 /hpf Urine Mucus FEW /lpf Blood Urea Nitrogen 18 MG/DL 10 MG/DL Creatinine 0.98 MG/DL 0.99 MG/DL Random Glucose 82 MG/DL 80 MG/DL Total Protein 7.1 GM/DL Albumin 3.4 GM/DL Calcium Level 8.5 MG/DL 9.1 MG/DL Alkaline Phosphatase 110 U/L Aspartate Amino Transf (AST/SGOT) 12 U/L Alanine Aminotransferase (ALT/SGPT) 36 U/L Total Bilirubin 0.6 MG/DL Sodium Level 140 MEQ/L 140 MEQ/L Potassium Level 3.7 MEQ/L 3.9 MEQ/L Chloride Level 105 MEQ/L 104 MEQ/L Carbon Dioxide Level 27.3 MEQ/L 31.1 MEQ/L White Blood Count 5.9 TH/MM3 Red Blood Count 5.28 MIL/MM3 Hemoglobin 14.9 GM/DL Hematocrit 44.0 % Mean Corpuscular Volume 83.3 FL Mean Corpuscular Hemoglobin 28.3 PG Mean Corpuscular Hemoglobin Concent 33.9 % Red Cell Distribution Width 13.8 % Platelet Count 341 TH/MM3 Mean Platelet Volume 7.2 FL Neutrophils (%) (Auto) 65.0 % Lymphocytes (%) (Auto) 25.5 % Monocytes (%) (Auto) 6.7 % Eosinophils (%) (Auto) 2.0 % Basophils (%) (Auto) 0.8 % Neutrophils # (Auto) 3.9 TH/MM3 Lymphocytes # (Auto) 1.5 TH/MM3 Monocytes # (Auto) 0.4 TH/MM3 Eosinophils # (Auto) 0.1 TH/MM3 Basophils # (Auto) 0.0 TH/MM3 CBC Comment DIFF FINAL Differential Comment Anion Gap 5 MEQ/L Estimat Glomerular Filtration Rate 88 ML/MIN Physical Examination HEENT: PERRL; normocephalic; atraumatic; no jaundice. CHEST: CTA CARDIAC: RRR ABDOMEN: Soft, nondistended, mild TTP lower abd; no hepatosplenomegaly; bowel sounds are present in all four quadrants. EXTREMITIES: No clubbing, cyanosis, or edema. SKIN: Normal; no rash; no jaundice. QUALITY REVIEW TRAINER: No focal deficits; alert and oriented times three. (Gwendolyn Belcher) Assessment and Plan Plan ASSESSMENT - abd pain, scant BRBPR - diverticulitis, prob small abscess. CT scans as above. 1 x episode scant BRBPR with BM this mornign and none since. HH WNL. benign abd. WBC WNL, on zosyn. GS has evaluated, conservative mgmt for now, poss outpt sigmoid resection PLAN - outpt colonoscopy 4-6 weeks - continue abx - low residue diet until diverticulitis resolved - further recs to follow pt seen by myself and Dr Navarro and this note is written on her behalf (Gwendolyn Belcher) Gwendolyn Belcher Oct 04, 2017 12:08 Hilaria Navarro MD Oct 04, 2017 21:28
[2017-10-04] MEDS: MORPHINE SULFATE 2 MG/ML INJ IV PUSH PRN (15:39)
[2017-10-04 16:00] VITALS: BP 115/59; PULSE 70; RESP 18; TEMP 97.8; O2SAT 96
--- NOTE | 2017-10-04 19:10 | PD.CAR.PN ---
CVT Progress Note Subjective/Hospital Course: 10/03/17 Patient doing very well at this time abdomen is soft active bowel sounds Mass effect is less prominent in suprapubic area Repeat CT scan tomorrow and depending on the findings patient may or may not go home on antibiotics As noted will need a colonoscopy next few weeks to evaluate this area as well as the rest of his colon especially in the face of positive family history for ulcerative colitis. Depending on all these studies will have to decide whether patient will need elective sigmoid colon resection or not this is all different than just regular diverticulitis wouldn't obviously hold off and change the diet as a preferred treatment 10/04/2017 Patient doing well at this time Abdomen soft active bowel sounds Patient should be discharged on low residue diet and follow-up with gastroenterology for colonoscopy in about 3-4 weeks As above noted this is going to show either something that needs surgery or patient is going to do well and can be followed up Considering that he has very severe diverticulitis with contained perforation at this young age tells me that he probably will need sigmoid resection in the near future but I want to see patient has some other problems i.e. possibly but unlikely malignancy, ulcerative colitis, Crohn's disease or some sort of intermediate type of granulomatous disease From my point patient can be discharged on low residue diet anytime Follow-up in my office after colonoscopy Objective: Vital Signs Date Time Temp Pulse Resp B/P (MAP) Pulse Ox O2 Delivery O2 Flow Rate FiO2 10/04/17 16:00 97.8 70 18 115/59 (77) 96 10/04/17 12:00 98.6 69 17 113/66 (82) 97 10/04/17 08:00 98.1 66 17 110/57 (74) 96 10/03/17 20:00 96.5 77 20 117/60 (79) 94 Result Diagram: 10/03/17 1110 10/03/17 1110 Samantha Lin MD Oct 04, 2017 19:10
[2017-10-04 20:58] VITALS: BP 120/66; PULSE 73; RESP 20; TEMP 97.1; O2SAT 95
[2017-10-05] VITALS: BP 101/50; PULSE 60; RESP 20; TEMP 98.1; O2SAT 97
[2017-10-05] MEDS: PIPERACIL-TAZO 3.375 GM PREMIX 50 ML IV SCH ×3 (03:39→09:32)
[2017-10-05] MEDS: D5-1/2 NS + KCL 10 MEQ INJ 1,000 ML IV SCH ×2 (06:12→11:15)
[2017-10-05 08:00] VITALS: BP 102/49; PULSE 54; RESP 16; TEMP 97.9; O2SAT 97
[2017-10-05] MEDS: SODIUM CHLORIDE 0.9% FLUSH 10 ML FLUSH IV FLUSH SCH (08:53)
--- NOTE | 2017-10-05 10:42 | HHI.DCPOC ---
Discharge Care Plan Diagnosis: (1) Acute diverticulitis (2) Leukocytosis Goals to Promote Your Health * To prevent worsening of your condition and complications * To maintain your health at the optimal level Directions to Meet Your Goals Take your medications as prescribed Follow your dietary instruction Follow activity as directed Keep your appointments as scheduled Take your immunizations and boosters as scheduled If your symptoms worsen call your PCP, if no PCP go to Urgent Care Center or Emergency Room Smoking is Dangerous to Your Health. Avoid second hand smoke Call the 24-hour hour crisis hotline for domestic abuse at Delfino Flores MD Oct 05, 2017 10:42
[2017-10-05] MEDS ORDERED: METR1TAB76 PO (10:47)
[2017-10-05] MEDS ORDERED: CIPR500T2 PO (10:47)
--- NOTE | 2017-10-05 10:51 | HHI.DS ---
Discharge Summary Admission Date Oct 01, 2017 at 20:45 Discharge Date: Oct 05, 2017 Admitting Diagnosis acute sigmoid diverticulitis with microperforation (1) Leukocytosis ICD Code: D72.829 - Elevated white blood cell count, unspecified (2) Acute diverticulitis ICD Code: K57.92 - Diverticulitis of intestine, part unspecified, without perforation or abscess without bleeding Procedures None Brief History - From Admission 31-year-old male with no significant past medical history presents for the evaluation of abdominal pain. The patient reports his abdominal pain began on Tuesday. He states that it is intermittent and cramping pain in his bilateral lower quadrants. He endorses nonbloody diarrhea. Denies nausea vomiting. Denies any other systemic symptoms such as fever/chills, shortness of breath/ chest pain, lower extremity swelling. CBC/BMP: 10/03/17 1110 10/03/17 1110 Significant Findings Laboratory Tests Test 10/03/17 11:10 Estimat Glomerular Filtration Rate 88 ML/MIN (>89) Imaging Last Impressions Abdomen/Pelvis CT 10/04/17 0000 Signed Impressions: Service Date/Time: Wednesday, October 04, 2017 08:50 - CONCLUSION: Diffuse wall thickening involving the rectosigmoid colon as well as pericolic inflammatory changes. There is a tiny extraluminal collection of air and fluid adjacent to the rectosigmoid colon measuring 17 mm in greatest dimension consistent with probable tiny pericolic abscess. This is too small for percutaneous drainage. Differential diagnosis remains the same as was described on the previous examination dated 10/01/17. Dino Baker MD PE at Discharge General: No acute distress. Heart: Regular rate and rhythm. No murmur. Lungs: Clear to auscultation bilaterally. No wheezes, rales, or rhonchi. Breathing is nonlabored. Abdomen: Soft, nontender, nondistended. Extremities: No lower extremity edema. Psych: Alert and oriented. Pt update on day of discharge The patient states that he had some abdominal discomfort following a bowel movement this morning. He reports that the bowel movement was loose, but nonbloody. No nausea or vomiting. He feels ready to go home. Hospital Course The patient was admitted for management of acute diverticulitis with possible rupture. He was started on IV antibiotics. Gen. surgery was consulted. Nonoperative treatment was recommended. Gastroenterology was consulted. The patient's pain improved significantly. Leukocytosis resolved. He was afebrile. His diet was advanced and he tolerated the diet well. He was cleared for discharge by general surgery and gastroenterology with instructions for follow- up as an outpatient. He was advised to have a colonoscopy done in 4-6 weeks, following resolution of the inflammation associated with the diverticulitis. Pt Condition on Discharge: Stable Discharge Disposition: Discharge Home Discharge Time: > 30 minutes Discharge Instructions DIET: Follow Instructions for: Heart Healthy Diet, Low Residue Diet Activities you can perform: Regular-No Restrictions Follow up Referrals: Gastroenterology - 1 Week with Hilaria Navarro MD PCP Follow-up Surgical - 1 Month with Samantha Lin MD New Medications: Ciprofloxacin (Ciprofloxacin) 500 Mg Tab 500 MG PO BID for Infection, #20 TAB 0 Refills Metronidazole (Metronidazole) 500 Mg Tab 500 MG PO TID for Infection, #30 TAB 0 Refills Continued Medications: Esomeprazole DR (Nexium) 20 Mg Capdr 20 MG PO DAILY, CAP 0 Refills Delfino Flores MD Oct 05, 2017 10:51
--- NOTE | 2017-10-05 10:52 | PD.CAR.PN ---
CVT Progress Note Subjective/Hospital Course: 10/03/17 Patient doing very well at this time abdomen is soft active bowel sounds Mass effect is less prominent in suprapubic area Repeat CT scan tomorrow and depending on the findings patient may or may not go home on antibiotics As noted will need a colonoscopy next few weeks to evaluate this area as well as the rest of his colon especially in the face of positive family history for ulcerative colitis. Depending on all these studies will have to decide whether patient will need elective sigmoid colon resection or not this is all different than just regular diverticulitis wouldn't obviously hold off and change the diet as a preferred treatment 10/04/2017 Patient doing well at this time Abdomen soft active bowel sounds Patient should be discharged on low residue diet and follow-up with gastroenterology for colonoscopy in about 3-4 weeks As above noted this is going to show either something that needs surgery or patient is going to do well and can be followed up Considering that he has very severe diverticulitis with contained perforation at this young age tells me that he probably will need sigmoid resection in the near future but I want to see patient has some other problems i.e. possibly but unlikely malignancy, ulcerative colitis, Crohn's disease or some sort of intermediate type of granulomatous disease From my point patient can be discharged on low residue diet anytime Follow-up in my office after colonoscopy 10/05/2017 Patient doing well at this time Abdomen soft active bowel sounds She will be discharged on low residue diet instructions Follow-up with my office after colonoscopy and at that time we will decide if patient does not does not require surgery depending on the possible pathology found on colonoscopy and clinical progress Objective: Vital Signs Date Time Temp Pulse Resp B/P (MAP) Pulse Ox O2 Delivery O2 Flow Rate FiO2 10/05/17 08:00 97.9 54 16 102/49 (66) 97 10/05/17 00:00 98.1 60 20 101/50 (67) 97 10/04/17 20:58 97.1 73 20 120/66 (84) 95 10/04/17 16:00 97.8 70 18 115/59 (77) 96 10/04/17 12:00 98.6 69 17 113/66 (82) 97 Result Diagram: 10/03/17 1110 10/03/17 1110 Samantha Lin MD Oct 05, 2017 10:52
[2017-10-05 12:00] VITALS: BP 113/60; PULSE 62; RESP 18; TEMP 98.3; O2SAT 98
== END 2017-10-05 13:28 | disposition home or self-care (01) | DRG 392 ==
LOC: NEPD 17:41 → NEDA 20:45 → N07B 21:30
PROVIDERS: ADMIT Family Medicine; ATTEND Family Medicine
DX: K57.20 Diverticulitis of large intestine with perforation and abscess without bleeding (principal); K92.1 Melena
CPT/HCPCS: 74177; 80048; 80053; 81001; 85025; 86140; 96374; 96375; J1200; J1885; J2270; J2543; J2765; J3480; J7030; Q9963; Q9967

== ENCOUNTER 2018-01-01 12:12 | Emergency (ER) | payer MEDICAID ==
[~2018-01-01] VITALS: Ht 182.9 cm; Wt 107.0 kg
[~2018-01-01 12:12] MED LIST changes: +CIPR500T2 PO; -ERYT1O EACH EYE; +METR1TAB76 PO; +NEXI20CA PO; -OMNI1SUS EACH EYE; -PERC5TAB12 PO
[2018-01-01 12:14] VITALS: BP 190/87; PULSE 112; RESP 24; TEMP 99.1; O2SAT 97
[2018-01-01 12:21] VITALS: PULSE 97; RESP 16; O2SAT 100
[2018-01-01 12:24] VITALS: BP_SYST 142; PULSE 100
--- NOTE | 2018-01-01 12:27 | PD ---
HPI Chief Complaint: Medical Clearance Time Seen by Provider: 12:23 Travel History International Travel<30 days: No Contact w/Intl Traveler<30days: No Traveled to known affect area: No History of Present Illness HPI 32-year-old male with history of Crohn's disease presents emergency department for evaluation of acute onset shakiness. Patient states he feels like he cannot settle down. Tells me he has been under a lot of stress. He feels like his whole body is shaking. This began today. He has not been recently ill. No fever chills. No chest pain or tightness. No difficulty breathing. No other symptoms to report. PFSH Past Medical History Cancer: No Cardiovascular Problems: No Diminished Hearing: No Diverticulitis: Yes Endocrine: No Gastrointestinal Disorders: Yes (diverticulitis) Genitourinary: No Immune Disorder: No Implanted Vascular Access Dvce: No Musculoskeletal: No Neurologic: No Psychiatric: No Reproductive: No Respiratory: No Immunizations Current: Yes Tetanus Vaccination: Unknown Influenza Vaccination: No Past Surgical History Other Surgery: No Social History Alcohol Use: No Tobacco Use: Yes (3 a day) Substance Use: No Allergies-Medications (Allergen,Severity, Reaction): Coded Allergies: No Known Allergies (Unverified Allergy, Unknown, 10/01/17) Reported Meds & Prescriptions Reported Meds & Active Scripts Active Vistaril (Hydroxyzine Pamoate) 25 Mg Cap 25 Mg PO TID PRN Metronidazole 500 Mg Tab 500 Mg PO TID Ciprofloxacin (Ciprofloxacin HCl) 500 Mg Tab 500 Mg PO BID Reported Nexium (Esomeprazole DR) 20 Mg Capdr 20 Mg PO DAILY Review of Systems Except as stated in HPI: all other systems reviewed are Neg Physical Exam Narrative GENERAL: Well-nourished male patient, no acute distress. SKIN: Focused skin assessment warm/dry. HEAD: Atraumatic. Normocephalic. EYES: Pupils equal and round. No scleral icterus. No injection or drainage. ENT: No nasal bleeding or discharge. Mucous membranes pink and moist. NECK: Trachea midline. No JVD. CARDIOVASCULAR: Regular rate and rhythm. No murmur appreciated. RESPIRATORY: No accessory muscle use. Clear to auscultation. Breath sounds equal bilaterally. GASTROINTESTINAL: Abdomen soft, non-tender, nondistended. Hepatic and splenic margins not palpable. MUSCULOSKELETAL: No obvious deformities. No clubbing. No cyanosis. No edema. NEUROLOGICAL: Awake and alert. No obvious cranial nerve deficits. Motor grossly within normal limits. Normal speech. PSYCHIATRIC: Patient appears anxious. Data Data Last Documented VS Vital Signs Date Time Temp Pulse Resp B/P (MAP) Pulse Ox O2 Delivery O2 Flow Rate FiO2 01/01/18 14:34 01/01/18 12:24 100 01/01/18 12:21 16 100 Room Air 01/01/18 12:14 99.1 Orders Orders Iv Access Insert/Monitor (01/01/18 12:26) Complete Blood Count With Diff (01/01/18 12:26) Basic Metabolic Panel (Bmp) (01/01/18 12:26) Lorazepam Inj (Ativan Inj) (01/01/18 12:30) Sodium Chlor 0.9% 1000 Ml Inj (Ns 1000 M (01/01/18 13:15) Ed Discharge Order (01/01/18 13:21) Labs Laboratory Tests Test 01/01/18 12:30 White Blood Count 11.8 TH/MM3 Red Blood Count 5.04 MIL/MM3 Hemoglobin 14.9 GM/DL Hematocrit 42.0 % Mean Corpuscular Volume 83.3 FL Mean Corpuscular Hemoglobin 29.5 PG Mean Corpuscular Hemoglobin Concent 35.4 % Red Cell Distribution Width 14.2 % Platelet Count 332 TH/MM3 Mean Platelet Volume 7.2 FL Neutrophils (%) (Auto) 92.4 % Lymphocytes (%) (Auto) 6.3 % Monocytes (%) (Auto) 0.5 % Eosinophils (%) (Auto) 0.6 % Basophils (%) (Auto) 0.2 % Neutrophils # (Auto) 10.9 TH/MM3 Lymphocytes # (Auto) 0.7 TH/MM3 Monocytes # (Auto) 0.1 TH/MM3 Eosinophils # (Auto) 0.1 TH/MM3 Basophils # (Auto) 0.0 TH/MM3 CBC Comment DIFF FINAL Differential Comment Blood Urea Nitrogen 18 MG/DL Creatinine 1.01 MG/DL Random Glucose 81 MG/DL Calcium Level 8.9 MG/DL Sodium Level 143 MEQ/L Potassium Level 4.0 MEQ/L Chloride Level 105 MEQ/L Carbon Dioxide Level 31.6 MEQ/L Anion Gap 6 MEQ/L Estimat Glomerular Filtration Rate 85 ML/MIN [facility] Medical Decision Making Medical Screen Exam Complete: Yes Emergency Medical Condition: Yes Medical Record Reviewed: Yes Differential Diagnosis Anxiety versus electrolyte abnormality versus tremors Narrative Course 32-year-old male presents emergency department for evaluation of sensation of body shaking. He appears without distress. Vital signs are stable. Lab work confirms no acute abnormality. Patient is given a milligram of Ativan. This helps his sensation and shakiness to resolve. Patient is encouraged to follow- up with the primary care provider. He will be given a prescription for Vistaril. He agrees to return immediately with acute worsening symptoms. Diagnosis Primary Impression: Shakiness Additional Impression: Anxiety as acute reaction to gross stress Referrals: Primary Care Physician Patient Instructions: Anxiety (ED), General Instructions Additional Instructions: Follow-up with a primary care provider Return immediately with acute worsening symptoms Med/Other Pt SpecificInfo: Prescription(s) given Scripts Hydroxyzine Pamoate (Vistaril) 25 Mg Cap 25 MG PO TID Y for ANXIETY AND/OR AGITATION, #20 CAP 0 Refills Prov: Ingrid Johns 01/01/18 Disposition: 01 DISCHARGE HOME Condition: Stable Ingrid Johns January 01, 2018 12:27
[2018-01-01] MEDS ORDERED: LORazepam 2 MG/ML VIAL IV PUSH ONE (12:30)
[2018-01-01 12:47] LABS: AUTOMATED NEUTROPHIL # 10.9 TH/MM3 (1.8-7.7); BASOPHIL % 0.2 % (0.0-2.0); EOSINOPHIL # 0.1 TH/MM3 (0-0.4); EOSINOPHIL % 0.6 % (0.0-4.0); HEMOGLOBIN 14.9 GM/DL (13.0-17.0); LYMPH % 6.3 % (9.0-44.0); LYMPHOCYTE # 0.7 TH/MM3 (1.0-4.8); MEAN CELL VOLUME 83.3 FL (80.0-100.0); MEAN CORPUSCULAR HEMOGLOBIN 29.5 PG (27.0-34.0); MEAN CORPUSCULAR HGB CONC 35.4 % (32.0-36.0); MEAN PLATELET VOLUME 7.2 FL (7.0-11.0); MONO % 0.5 % (0.0-8.0); MONOCYTE # 0.1 TH/MM3 (0-0.9); NEUT % 92.4 % (16.0-70.0); PLATELET COUNT 332 TH/MM3 (150-450); RED BLOOD COUNT 5.04 MIL/MM3 (4.50-5.90); RED CELL DISTRIBUTION WIDTH 14.2 % (11.6-17.2); WHITE BLOOD COUNT 11.8 TH/MM3 (4.0-11.0)
[2018-01-01 13:14] LABS: BICARBONATE 31.6 MEQ/L (21.0-32.0); CALCIUM 8.9 MG/DL (8.5-10.1); CREATININE 1.01 MG/DL (0.60-1.30)
[2018-01-01] MEDS ORDERED: SODIUM CHLOR 0.9% 1000 ML INJ 1,000 ML IV ONE (13:15)
[2018-01-01] MEDS ORDERED: VIST25CA PO (13:23)
== END 2018-01-01 14:44 | disposition home or self-care (01) ==
LOC: NEPC 12:12
DX: F41.1 Generalized anxiety disorder (principal); F43.0 Acute stress reaction; Z72.0 Tobacco use
CPT/HCPCS: 80048; 85025; 96374; 99284; J2060; J7030